=== PATIENT | male | born 1995 | race Caucasian/White ===

== ENCOUNTER 2016-04-28 02:44 | Emergency (ER) | payer OTHER ==
[2016-04-28] MEDS ORDERED: KETOROLAC TROMETHAMINE 10 MG TAB PO ONE (02:51)
[2016-04-28 02:53] VITALS: BP 139/81; PULSE 70; TEMP 97.8
--- NOTE | 2016-04-28 02:53 | EDPRACDOC ---
- General Information Stated Complaint: TOOTH ACHE Time Seen by Provider: 04/28/16 02:51 Home Medications: Home Medications Clindamycin HCl [Cleocin HCl] 300 mg PO QID #80 capsule 03/27/16 Tramadol HCl 50 mg PO Q6 PRN #10 tablet 03/27/16 Ketorolac Tromethamine 10 mg PO Q6H PRN #20 tab 04/28/16 Allergies/Adverse Reactions: Allergies Allergy/AdvReac Type Severity Reaction Status Date / Time cefaclor [From Ceclor] Allergy Unknown Verified 03/27/16 08:50 laundry detergent Allergy Hives* Uncoded 03/27/16 08:50 - History of Present Illness HPI: RIGHT LOWER MOLAR TOOTHACHE. Pain Severity: Reports: Mild Relevant History of: Reports: None Modifying Factors: improves with: None Associated Signs and Symptoms: Reports: None ED Past Medical History - History Reviewed Yes Nurses notes reviewed and agree except as marked - Patient Medical History Psychological History: Denies: Depression - Social Medical History Smoking Status: Heavy tobacco smoker (5 or more cigarettes/day or daily pipe/ cigar) EDM Review of Systems - Review of Systems ROS Negative Except as Marked: Yes All systems reviewed and were negative except as marked - Physical Exam Constitutional: No apparent distress Oriented to: Time, Person, Place Last recorded Vital Signs: Oxygen Pulse Oxygen Saturation O2 Device Oxygen Flow Rate Fraction of Inspired Oxygen ( FIO2) ED Tooth Problem Exam - HEENT Face: Normal Gingiva: Normal Palate: Normal Decision Time to Discharge: 02:52 - Departure Yes I personally saw and evaluated the patient. Disposition: Home Condition: Good Final Diagnosis: ODONTALGIA Instructions: Toothache (ED) Education/Counseling Given To: Patient Education/Counseling Given Regarding: Diagnosis, Treatment, Prognosis Prescriptions: Ketorolac Tromethamine 10 mg PO Q6H PRN #20 tab PRN Reason: Pain
[2016-04-28 02:56] VITALS: BMI 35.2
== END 2016-04-28 03:03 | disposition home or self-care (01) ==
LOC: ED 02:44
DX: K08.89 Other specified disorders of teeth and supporting structures (principal); F17.200 Nicotine dependence, unspecified, uncomplicated
CPT/HCPCS: 99283; J3490

== ENCOUNTER 2016-05-13 21:10 | Emergency (ER) | payer OTHER ==
[2016-05-13 21:32] VITALS: TEMP 98; BMI 34.4
[2016-05-13] MEDS ORDERED: NS 1,000 ML IV ONE (21:42)
[2016-05-13] MEDS ORDERED: ONDANSETRON HCL 4 MG/2 ML VIAL IV ONE (21:42)
--- NOTE | 2016-05-13 21:50 | EDPRACDOC ---
- General Information Chief Complaint: Nausea,Vomiting,Diarrhea Stated Complaint: VOMITING X2 DAYS Information Source: Patient Home Medications: Home Medications Ondansetron [Zofran Odt] 4 mg PO TID PRN #10 tab.esperanzadis 05/13/16 Allergies/Adverse Reactions: Allergies Allergy/AdvReac Type Severity Reaction Status Date / Time cefaclor [From Ceclor] Allergy Unknown Verified 05/13/16 21:32 laundry detergent Allergy Hives* Uncoded 05/13/16 21:57 - History of Present Illness Onset: 2 days HPI: C/o N/V after eating or drinking and body aches x 2 days. Denies fever, diarrhea , cp, sob, cough, sore throat, abdo pain, chnage in urine or BM. Med hx = ADD. Surgical hx = none. Symptoms Occured: Reports: After Eating Duration: Reports: Since Onset Emesis: Reports: Food Particles Recent: Reports: Contact Exposure (mom had N/V x 24hrs) Pain Quality: Denies: Aching, N, Burning, Colicky, Cramping, Sharp, Stabbing, Knife-like, O Pain Severity: None Pain Location: Denies: Diffuse, Epigastric, RUQ, LUQ, RLQ, LLQ, Periumbilical, Suprapubic, Generalized abdomen, Flank, O Relevant History of: Reports: Contact Exposure Associated Signs and Symptoms: Reports: Nausea, Vomiting Oral Intake: Decreased Urinary Output: Normal ED Past Medical History - History Reviewed Yes Nurses notes reviewed and agree except as marked - Patient Medical History Psychological History: Denies: Depression - Social Medical History Smoking Status: Heavy tobacco smoker (5 or more cigarettes/day or daily pipe/ cigar) EDM Review of Systems - Review of Systems ROS Negative Except as Marked: Yes All systems reviewed and were negative except as marked Gastrointestinal: Nausea, Vomiting Musculoskeletal: Other (body aches) - Physical Exam Constitutional: No apparent distress, Alert Oriented to: Time, Person, Place Last recorded Vital Signs: Last Vital Signs Temp 98 F 05/13/16 21:29 Pulse 58 L 05/13/16 21:29 Resp 18 05/13/16 21:29 BP 143/58 L 05/13/16 21:29 Pulse Ox 97 05/13/16 21:29 Oxygen Pulse Oxygen Saturation 97 O2 Device Room Air Oxygen Flow Rate Fraction of Inspired Oxygen ( FIO2) - HEENT Head: Normal Eye Exam: negative: Conjunctival Injection, Scleral Icterus Oropharynx: negative: Drooling TMJ: Normal Nose: No Symptoms Reported Neck: Normal - Respiratory/Cardiovascular Respiratory: Normal - CTA Cardiovascular: Normal - GI Auscultation: Normal Palpation: Normal Tenderness: Non tender - Musculoskeletal Back: Normal Extremities: Normal - Integumentary Skin: Normal - Neurologic Mood Description: Normal Thought: Coherent Perception: Normal - Results 05/13/16 21:47 05/13/16 21:47 Decision Time to Discharge: 22:54 - Departure Disposition: Home Condition: Stable Final Diagnosis: Nausea and vomiting Qualifiers: Vomiting type: unspecified Vomiting Intractability: unspecified Qualified Code( s): R11.2 - Nausea with vomiting, unspecified Instructions: Acute Nausea and Vomiting (ED) Education/Counseling Given To: Patient Education/Counseling Given Regarding: Diagnosis, Treatment, Prognosis, Follow Up Referrals: Yamileth Tomlin, [facility] [Primary Care Provider] - One Week Prescriptions: Ondansetron [Zofran Odt] 4 mg PO TID PRN #10 tab.rapdis PRN Reason: Nausea/Vomiting Additional Instructions: FOLLOW UP WITH PRIMARY CARE. TAKE ZOFRAN FOR NAUSEA. RETURN TO ED FOR ANY NEW OR WORSENING SYMPTOMS.
[2016-05-13 22:06] LABS: AUTOMATED BASOPHIL 0.7 % (0-2); AUTOMATED EOSINOPHIL 6.1 % (0-5); AUTOMATED LYMPH 48.7 % (17-44); AUTOMATED NEUTROPHIL 37.5 % (45-76); MPV 7.7 fL (7.4-10.4)
[2016-05-13 22:21] LABS: BLOOD UREA NITROGEN 14 MG/DL (9-20); CALCIUM 9.1 MG/DL (8.4-10.2); CALCULATED OSMOLALITY 270 MOs/Kg (270-290); CHLORIDE 105 mEq/L (98-107); GLUCOSE 94 MG/DL (70-99); SODIUM LEVEL 140 mEq/L (137-146); TOTAL PROTEIN 6.4 G/DL (6.3-8.2)
[2016-05-13 23:09] VITALS: BP 134/68; PULSE 60
== END 2016-05-13 23:07 | disposition home or self-care (01) ==
LOC: ED 21:10
DX: R11.2 Nausea with vomiting, unspecified (principal)
CPT/HCPCS: 36415; 80053; 85025; 96361; 96374; 99284; J2405